=== PATIENT | female | born 1950 | race Caucasian/White ===

== ENCOUNTER → 2020-06-20 14:50 | Outpatient (CLI) | payer OTHER, SELFPAY ==
--- NOTE | ~2020-06-20 | MM_ITS ---
EXAMINATION: MM screening [facility] BI w ginger HISTORY: Screening mammogram TECHNIQUE: Craniocaudal and mediolateral oblique 3-D tomosynthesis images were obtained and synthetic 2-D images were generated. CAD analysis was submitted and interpreted. COMPARISON: 09/08/2017, 09/04/2016, 02/28/2014 BREAST PARENCHYMAL COMPOSITION: There are scattered areas of fibroglandular density. FINDINGS: There is no evidence of suspicious mass, calcification, or architectural distortion to sugg est malignancy in either breast. There has been no suspicious interval change. IMPRESSION: 1. No mammographic evidence of malignancy. 2. Recommend routine screening mammography in one year. BI-RADS Category 1: Negative Reviewed, dictated and finalized at location A. [employer]
== END ==
PROVIDERS: PCP Internal Medicine; Visit Provider Internal Medicine
DX: Z12.31 Encounter for screening mammogram for malignant neoplasm of breast (principal)
CPT/HCPCS: 77063; 77067

== ENCOUNTER 2021-04-09 16:34 | Outpatient (CLI) | payer OTHER, SELFPAY ==
--- NOTE | ~2021-04-09 | DEXA_ITS ---
Bone Density Report Name: ADRIA MONTAÑO Age: 70 Sex: Female Ethnicity: White Date of : 1950 Indication: osteopenia; postmenopausal Referring Provider: Lolis Forbes Study: Bone densitometry was performed. Exam Date: April 09, 2021 Accession number: [id number] Bone Density: Region BMD T-score Z-score Classification AP Spine (L1-L4) 0.969 -0.7 1.6 Normal Femoral Neck (Left) 0.689 -1.4 0.5 Osteopenia Total Hip (Left) 0.857 -0.7 1.0 Normal Total Hip Bilateral Avg 0.839 -0.8 0.8 Normal Femoral Neck (Right) 0.682 -1.5 0.5 Osteopenia Total Hip (Right) 0.820 -1.0 0.7 Normal World Health Organization criteria for BMD impression classify patients as: Normal (T-score at or above -1.0), Osteopenia (T-score between -1.0 and -2.5), or Osteoporosis (T-score at or below -2.5). 10-year Fracture Risk(1): Major Osteoporotic Fracture 11% Hip Fracture 1.9% Reported Risk Factors: [place] (), Neck BMD=0.682, BMI=25.7 (1) FRAX(R) Version 3.08. Fracture probability calculated for an untreated patient. Fracture probability may be lower if the patient has received treatment. Previous Exams: Region Exam Age BMD T-score BMD Change BMD Change Date g/cm2 vs Baseline vs Previous AP Spine(L1-L4) 04/09/2021 70 0.969 -0.7 0.087(9.9%)* 0.087(9.9%)* 07/31/2011 61 0.882 -1.5 Total Hip(Left) 04/09/2021 70 0.857 -0.7 0.003(0.3%) 0.003(0.3%) 07/31/2011 61 0.854 -0.7 Total Hip(Right) 04/09/2021 70 0.820 -1.0 0.001(0.1%) 0.001(0.1%) 07/31/2011 61 0.820 -1.0 *Denotes significance at 95% confidence level, LSC for AP Spine = 0.022 g/cm2, LSC for Total Hip = 0.027 g/cm2 Clinical Information Provided by Patient: Has used the following medications: HRT (i.e. estrogen/hormone therapy), Vitamin D, Calcium Patient maximum height was 63 Onset of menses at age 12 Number of children 2 Impression: The patient has low bone mass, based on the Right Femoral Neck T-score. The patient has an estimated ten-year risk of hip fracture of 1.9% and an estimated ten-year risk of major fracture of 11%, based on the WHO FRAX algorithm. No significant bone loss was observed. Discussion: BONE DENSITY IS LOW AT ONE OR MORE SKELETAL SITES. This patient's lowest T-score is low at one or more skeletal sites. It meets the World Health Organization's (WHO) criteria for ?low bone mass? (T-score between -1.0 and -2.5). The patient's 10-year r
== END 2021-04-09 16:35 | disposition home or self-care (01) ==
LOC: ANHIMG 16:36
PROVIDERS: PCP Internal Medicine; Visit Provider Nurse Practitioner
DX: Z78.0 Asymptomatic menopausal state (principal); M85.852 Other specified disorders of bone density and structure, left thigh; M85.851 Other specified disorders of bone density and structure, right thigh
CPT/HCPCS: 77080

== ENCOUNTER → 2023-05-21 09:52 | Outpatient (CLI) | payer OTHER, SELFPAY ==
--- NOTE | ~2023-05-21 | XR_ITS ---
Lumbosacral Spine: AP and lateral views Clinical History: Pain Findings: The normal lordotic curve is maintained. No fracture or subluxation identified. There is ad vanced degenerative disc narrowing at L3-L4, L4-L5, and L5-S1. There is extensive facet arthropathy a t the lower lumbar spine. The sacroiliac joints are normally outlined. Impression: Moderate to advanced degenerative spondylosis of the lower lumbar spine. Reviewed, dictated and finalized at location . UITMENT DIRECTOR Impression: Moderate to advanced degenerative spondylosis of the lower lumbar spine.
== END ==
PROVIDERS: PCP Nurse Practitioner Family; Visit Provider Nurse Practitioner Family
DX: M47.896 Other spondylosis, lumbar region (principal)
CPT/HCPCS: 72100

== ENCOUNTER 2023-07-13 13:15 | Outpatient (RCR) | payer OTHER, SELFPAY ==
--- NOTE | 2023-06-11 14:04 | OPREHPOC ---
Outpatient Therapy Plan of Care This is a Multidisciplinary Plan of Care that may contain components documented by all disciplines (PT, OT, and ST.) PT Problem 1 PT Problem #1 Knowledge Deficit PT Goal 1 Goal 1* indep with HEP 2* demonstrate correct posture with exercises PT Problem 2 PT Problem #2 Pain PT Goal 1 Goal 1* pt report pain rating at worst of 4/10 2* radicular pain into L to above knee at worst 3* radicular pain into R to lateral hip at worst 4* self assessment Oswestry score of 18% limitation in activity 5* pt report walking/standing activity tolerance of 30 minutes PT Problem 3 PT Problem #3 Impaired Flexibility PT Goal 1 Goal improve flexibility of hips, to improve positioning of spine and hips hamstring length with supine SLR 1* R 60' 2* L 70' anterior hip/quad length with prone knee flexion 3* R 120' 4* L 115' 5* no pain increase with supine R hip IR PT Problem 4 PT Problem #4 Impaired Strength PT Goal 1 Goal increase strength of trunk and hips, to improve stability to spine and increase activity tolerance 1* pt perform 20 reps of mat strengthening exercises 2* single leg standing R 20 seconds 3* single leg standing L 20 seconds
--- NOTE | 2023-06-11 14:04 | PTOPEVAL1 ---
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; he has recently ; have a new car- higher seat and have to step in and lift L LE- problems doing that; sitting eases her pain, standing and walking increase pain; feels like R tail bone is swollen; Activity: live alone, is indep with doing all home and self care tasks- with increased pain and not as active as was; has local family support; Reported Pain Level Pain Score 2: Self Report Additional Pain Score Comments pain range in the past week: 2-8/10; constant pain in back, intermittent into LE's L to anterior damian > R to lateral mid thigh toothache type pain in legs; increase pain: standing/up on feet 20 min; lie in bed--back, side R and side L decrease pain: sit/rest; heat and vibration on her recliner; sleeping is disrupted due to pain, awaken after 4 hours- at best of sleeping; is not taking any pain meds; instruct on use of pillow between knees with sleeping Assessment PT Clinical Summary Andriy has the diagnosis of back pain. She has chronic issues with back pain and has not had PT in the past. She has intermittent radicular pain into both legs. She is active and indep, but less activity and limited, since more pain increase. With the evaluation, she has decreased flexibility of R hamstring, R piriformis and both anterior hip/quads; most tenderness over R sacrum; pain is increased with supine bridge, supine R hip IR and R piriformis stretch; her R sacrum is posterior rotated. Skilled PT services are indicated for treatment of sacral iliac dysfunction: modalities for pain control, therapeutic exercises to increase stability & flexibility to improve positioning of her spine and hips, wi
--- NOTE | 2023-06-30 13:52 | PCPTNOTE ---
Pts appt was canceled due to providers absence.
--- NOTE | 2023-07-13 14:10 | PTOPDC ---
Assessment and note entered by Ann Paul, PT Evaluation Information Assessment Status Discharge Diagnosis back pain Onset February 2023 Subjective Information doing much better, sleeping and moving better; went shopping for 3 hours and did not hurt; no longer taking any ibuprofen; Reported Pain Level Pain Score 0: Self Report Additional Pain Score Comments no pain in the past week; no pain in legs, but once in the past few days had tight area of lateral calf; did have some tightness in low back but stretch backwards and it is gone; went shopping for 3 hours; Assessment PT Clinical Summary Andriy has received 8 PT sessions. She has improved in all areas: pain reduced to 0/10- only tight in low back, eased with stretching; increase activity level--up/walking/shopping for 3 hours without any issues; self assessment with Oswestry from 28% to 0% limitation in activity; increase flexibility with hamstring, piriformis, anterior hip/quads on both R and L; no pain with supine hip motions or stretching; indep with HEP and posture correction. The goals were achieved, except single leg standing tolerance. Discharge PT services. She is to continue with the exercises at home, monitor posture/back position and progress activity as tolerated. Plan of Care PT Services Indicated No
== END 2023-07-13 15:48 | disposition home or self-care (01) ==
LOC: ANHPT 13:15
PROVIDERS: PCP Nurse Practitioner Family; Visit Provider Nurse Practitioner Family
DX: M54.9 Dorsalgia, unspecified (principal); G89.29 Other chronic pain
CPT/HCPCS: 97014; 97110; 97140; 97161; 97530; G0283

== ENCOUNTER 2024-01-04 12:35 | Outpatient (CLI) | payer OTHER, SELFPAY ==
--- NOTE | ~2024-01-04 | MM_ITS ---
EXAMINATION: MM screening [facility] BI w ginger HISTORY: Screening mammogram TECHNIQUE: Craniocaudal and mediolateral oblique 3-D tomosynthesis images were obtained and synthetic 2-D images were generated. CAD analysis was submitted and interpreted. COMPARISON: 06/20/2020, 09/08/2017 BREAST PARENCHYMAL COMPOSITION:Not Dense. There are scattered areas of fibroglandular density. FINDINGS: No suspicious mass, calcification, or architectural distortion are identified in either pat ast to suggest malignancy. There has been no suspicious interval change. IMPRESSION: No mammographic evidence of malignancy. Recommend routine screening mammography in one year. BI-RADS Category 1: Negative Reviewed, dictated and finalized at location .
== END 2024-01-04 12:36 | disposition home or self-care (01) ==
LOC: MICIMG 12:36
PROVIDERS: PCP Nurse Practitioner Family; Visit Provider Nurse Practitioner Family
DX: Z12.31 Encounter for screening mammogram for malignant neoplasm of breast (principal)
CPT/HCPCS: 77063; 77067

== ENCOUNTER 2024-03-21 10:42 | Outpatient (CLI) | payer OTHER, SELFPAY ==
--- NOTE | ~2024-03-21 | DEXA_ITS ---
Bone Density Report Name: ADRIA MONTAÑO Age: 73 Sex: Female Ethnicity: White Date of : 1950 Indication: postmenopausal; screening for osteoporosis; height loss; Referring Provider: RAMA CHAO Study: Bone densitometry was performed. Exam Date: March 21, 2024 Accession number: [id number] Bone Density: Region BMD T-score Z-score Classification AP Spine(L1-L4) 0.973 -0.7 1.8 Normal Femoral Neck (Left) 0.697 -1.4 0.7 Osteopenia Total Hip (Left) 0.793 -1.2 0.6 Osteopenia Femoral Neck (Right) 0.762 -0.8 1.3 Normal Total Hip (Right) 0.803 -1.1 0.7 Osteopenia Total Hip Mean 0.798 -1.2 0.7 Osteopenia World Health Organization criteria for BMD impression classify patients as: Normal (T-score at or above -1.0), Osteopenia (T-score between -1.0 and -2.5), or Osteoporosis (T-score at or below -2.5). 10-year Fracture Risk(1): Major Osteoporotic Fracture 11% Hip Fracture 2.1% Reported Risk Factors: [place] (), Neck BMD=0.697, BMI=25.6 (1) FRAX(R) Version 3.08. Fracture probability calculated for an untreated patient. Fracture probability may be lower if the patient has received treatment. Previous Exams: Region Exam Age BMD T-score BMD Change BMD Change Date g/cm2 vs Baseline vs Previous AP Spine (L1-L4) 03/21/2024 73 0.973 -0.7 0.004 (0.4%)# 0.004 (0.4%)# 04/09/2021 70 0.969 -0.7 Total Hip(Left) 03/21/2024 73 0.793 -1.2 -0.063 (-7.4%) -0.063 (-7.4%) 04/09/2021 70 0.857 -0.7 Total Hip(Right) 03/21/2024 73 0.803 -1.1 -0.017 (-2.1%) -0.017 (-2.1%) 04/09/2021 70 0.820 -1.0 *Denotes significance at 95% confidence level, LSC for AP Spine = 0.022 g/cm2, LSC for Total Hip = 0.027 g/cm2 # Denotes dissimilar scan types or analysis methods Clinical Information Provided by Patient: Has used the following medications: Vitamin D, Calcium Patient maximum height was 64.0 No regular weight bearing exercise Drinks caffeinated beverages Onset of menses at age 12 Number of children 2 Impression: The patient has low bone mass, based on the Left Femoral Neck T-score. The patient has an estimated ten-year risk of hip fracture of 2.1% and an estimated ten-year risk of major fracture of 11%, based on the WHO FRAX algorithm. No significant bone loss was observed. Discussion: BONE DENSITY IS LOW AT ONE OR MORE SKELETAL SITES. This patient's lowest T-score is low at one or more skeletal sites. It meets the World Health Organization's (WHO) criteria for ?low bone mass? (T-score between -1.0 and -2.5). The patient's 10-year risk of fracture as calculated by FRAX is less than the threshold where pharmacological therapy is recommended by the National Osteoporosis Foundation (NOF). However, all treatment decisions require clinical judgment and consideration of individual patient factors, including patient preferences, comorbidities, previous drug use, risk factors not captured in the FRAX model (e.g., frailty, falls, vitamin D deficiency, increased bone turnover, interval significant decline in bone density) and possible under or overestimation of fracture risk by FRAX. The patient should follow a healthful lifestyle (good nutrition with adequate calcium and vitamin D, and appropriate weight-bearing exercise). Follow-Up: Consider repeating this study in 2 to 3 years to reassess this patient's status, or sooner if there is some new clinical indication. Reported by: ARNALDO on 03/21/2024 11:14:00 AM. Reviewed, dictated and finalized at location A. [facility]
== END 2024-03-21 10:43 | disposition home or self-care (01) ==
LOC: ANHIMG 10:43
PROVIDERS: PCP Nurse Practitioner Family; Visit Provider Nurse Practitioner Family
DX: M85.89 Other specified disorders of bone density and structure, multiple sites (principal); Z13.820 Encounter for screening for osteoporosis; Z78.0 Asymptomatic menopausal state
CPT/HCPCS: 77080